=== PATIENT | male | born 1970 | race Caucasian/White ===

== ENCOUNTER 2019-05-14 17:05 | Emergency (ER) | payer OTHER ==
[~2019-05-14] VITALS: Ht 182.9 cm; Wt 99.4 kg
[2019-05-14] MEDS ORDERED: ADACEL/BOOSTRIX VACCINE (DIPHTH/PERTUSS/ACELL/TETANUS)0.5ML SYR (90715) IM ONE (17:30)
[2019-05-14] MEDS ORDERED: BUPIVACAINE HCL 0.5% 10 ML VIAL As Ordered ONE (17:40)
--- NOTE | 2019-05-14 17:57 | REP ---
Clinical: Trauma. Laceration. Technique: AP and lateral views of the left forearm. Findings: Subcutaneous emphysema consistent with laceration. No foreign body. No acute fracture or dislocation. Findings: No foreign body. No fracture. Electronically Signed by Luc Nina MD 05/14/2019 05:48 P
[2019-05-14] MEDS ORDERED: CEPHALEXIN 500 MG CAP PO ONE (19:00)
[2019-05-14] MEDS ORDERED: KEFL500C17 PO (19:17)
[2019-05-14 19:40] VITALS: BP 127/80
== END 2019-05-14 19:59 | disposition home or self-care (01) ==
LOC: M ED 17:05
DX: S56.822A Laceration of other muscles, fascia and tendons at forearm level, left arm, initial encounter (principal); S51.812A Laceration without foreign body of left forearm, initial encounter; W26.8XXA Contact with other sharp object(s), not elsewhere classified, initial encounter; Y92.89 Other specified places as the place of occurrence of the external cause; Y99.0 Civilian activity done for income or pay; Z88.0 Allergy status to penicillin

== ENCOUNTER → 2024-09-28 | Outpatient (REF) | payer BC, SELFPAY ==
[~2024-09-28] MED LIST: KEFL500C17 PO
[2024-09-28 19:28] LABS: HEMOGLOBIN A1c 5.6 % (4.0-6.0)
[2024-09-28 19:33] LABS: ALBUMIN 4.2 G/DL (3.2-5.2); ALKALINE PHOSPHATASE 60 U/L (40-129); ALT/SGPT 29 U/L (7.0-40); AST/SGOT 21 U/L (<34); BILIRUBIN,TOTAL 0.5 MG/DL (0.3-1.2); BLOOD UREA NITROGEN 11 MG/DL (9-23); CALCIUM LEVEL 9.4 MG/DL (8.5-10.1); CARBON DIOXIDE LEVEL 26 MMOL/L (20-31); CHLORIDE LEVEL 107 MMOL/L (98-107); CHOLESTEROL LEVEL 201 MG/DL (<200); CHOLESTEROL RISK RATIO 3.75 (<5); CREATININE FOR GFR 0.78 MG/DL (0.70-1.30); GLOMERULAR FILTRATION RATE > 90.0 (>56); GLUCOSE, FASTING 85 MG/DL (60-100); HDL CHOLESTEROL 53.6 MG/DL (>40); LDL CHOLESTEROL 127.6 MG/DL (<100); NON-HDL-C 147.4 MG/DL; POTASSIUM SERUM 4.5 MMOL/L (3.5-5.1); SODIUM LEVEL 140 MMOL/L (136-145); THYROID STIMULATING HORMONE 1.585 uIU/ML (0.55-4.78); TOTAL 25(OH) VITAMIN D 29.8 NG/ML (20.0-100.0); TOTAL PROTEIN 7.1 G/DL (5.7-8.2); TRIGLYCERIDES LEVEL 99 MG/DL (<150)
[2024-09-28 20:04] LABS: HIV 1&2 SCREEN NEGATIVE (NEGATIVE)
[2024-09-28 20:12] LABS: HEPATITIS C VIRUS ABY INDEX 0.02 INDEX (<0.8)
[2024-09-30 12:37] LABS: PSA FREE 0.2 ng/mL; PSA TOTAL 1.6 ng/mL (< OR = 4.0)
== END ==
LOC: M LAB REF 17:18
PROVIDERS: ATTEND Physician Assistant
DX: R19.5 Other fecal abnormalities (principal); R39.198 Other difficulties with micturition; Z11.9 Encounter for screening for infectious and parasitic diseases, unspecified; Z12.5 Encounter for screening for malignant neoplasm of prostate; E55.9 Vitamin D deficiency, unspecified

== ENCOUNTER → 2024-10-13 | Outpatient (CLI) | payer BC ==
[~2024-10-13] MED LIST changes: +ISOVUE-370 76% 100ML VIAL ONE
== END ==
LOC: M PLAIMG 13:03
PROVIDERS: ATTEND Physician Assistant
DX: R19.5 Other fecal abnormalities (principal); R59.0 Localized enlarged lymph nodes; K57.30 Diverticulosis of large intestine without perforation or abscess without bleeding
CPT/HCPCS: 74177; Q9967

== ENCOUNTER 2024-10-28 10:56 | Day surgery (SDC) | payer BC ==
[~2024-10-28] VITALS: Ht 182.9 cm; Wt 83.0 kg
[~2024-10-28 10:56] MED LIST changes: -ISOVUE-370 76% 100ML VIAL ONE; +LIDOCAINE 2% 100MG/5ML SDV (FOR ANES.) As Ordered ONE; +propofoL 200 MG/20 ML VIAL As Ordered ONE
[2024-10-28 13:46] VITALS: TEMP 97
[2024-10-28 14:06] VITALS: BP 121/72; O2SAT 98
== END 2024-10-28 14:11 | disposition home or self-care (01) ==
LOC: M OPP 10:56
PROVIDERS: ATTEND Surgery
DX: D12.5 Benign neoplasm of sigmoid colon (principal); K62.5 Hemorrhage of anus and rectum; R19.4 Change in bowel habit; Z88.0 Allergy status to penicillin

== ENCOUNTER → 2025-01-09 | Outpatient (CLI) | payer BC ==
[~2025-01-09] MED LIST changes: -LIDOCAINE 2% 100MG/5ML SDV (FOR ANES.) As Ordered ONE; -propofoL 200 MG/20 ML VIAL As Ordered ONE
== END ==
LOC: M RAD 16:25
PROVIDERS: ATTEND Student in an Organized Health Care Education/Training Program
DX: M41.84 Other forms of scoliosis, thoracic region (principal); M51.369 Other intervertebral disc degeneration, lumbar region without mention of lumbar back pain or lower extremity pain

== ENCOUNTER → 2025-01-26 | Outpatient (CLI) | payer BC | LOC: M PLAIMG 13:43 | PROVIDERS: ATTEND Physician Assistant | DX: M54.50 Low back pain, unspecified (principal) ==